=== PATIENT | female | born 1965 | race Two or more races ===

== ENCOUNTER 2019-04-14 10:30 | Emergency (ER) | payer OTHER ==
[~2019-04-14] VITALS: Ht 175.3 cm; Wt 99.8 kg
[~2019-04-14 10:30] MED LIST: ATORVASTATIN CA10 MG; SYNTHROID175 MCG PO
== END 2019-04-14 14:24 | disposition home or self-care (01) ==
LOC: ER 10:30
DX: R42 Dizziness and giddiness (principal)

== ENCOUNTER 2021-02-13 19:38 | Inpatient (IN) | payer OTHER ==
[~2021-02-13] VITALS: Ht 177.8 cm; Wt 95.3 kg
[2021-02-13] MEDS ORDERED: ATORVASTATIN CA40 MG (20:15)
[2021-02-16] MEDS ORDERED: XARELTO10 MG PO (12:24)
[2021-02-16] MEDS ORDERED: ULTRAM50 MG PO (12:28)
[2021-02-16] MEDS ORDERED: HIBICLENS118 ML TOP (12:31)
== END 2021-02-16 13:32 | disposition home or self-care (01) | DRG 482 ==
LOC: ER 19:38 → CIR.AMB 02-14 11:21 → SURH 02-14 19:59
PROVIDERS: ADMIT Orthopaedic Surgery; ATTEND Orthopaedic Surgery
PROC: 0QS704Z Reposition Left Upper Femur with Internal Fixation Device, Open Approach (ICD-10-PCS; principal; 2021-02-14 14:30)
DX: S72.092A Other fracture of head and neck of left femur, initial encounter for closed fracture (principal); Z20.822 Contact with and (suspected) exposure to COVID-19

== ENCOUNTER 2021-03-29 07:21 | Outpatient (CLI) | payer OTHER ==
[~2021-03-29 07:21] MED LIST changes: +ATORVASTATIN CA40 MG; +HIBICLENS118 ML TOP; +ULTRAM50 MG PO; +XARELTO10 MG PO
[2021-04-11] MEDS ORDERED: SYNTHROID150 MCG PO (14:03)
[2021-04-11] MEDS ORDERED: ZETIA10 MG PO (14:04)
== END 2021-03-29 07:27 | disposition home or self-care (01) ==
LOC: LAB 07:21
PROVIDERS: ATTEND Orthopaedic Surgery
DX: E83.42 Hypomagnesemia (principal); E56.1 Deficiency of vitamin K; M85.89 Other specified disorders of bone density and structure, multiple sites

== ENCOUNTER 2021-03-29 08:05 | Outpatient (CLI) | payer OTHER ==
[2021-04-11] MEDS ORDERED: SYNTHROID150 MCG PO (14:03)
[2021-04-11] MEDS ORDERED: ZETIA10 MG PO (14:04)
== END 2021-03-29 08:20 | disposition home or self-care (01) ==
LOC: RAD 08:05
PROVIDERS: ATTEND Orthopaedic Surgery
DX: S72.032D Displaced midcervical fracture of left femur, subsequent encounter for closed fracture with routine healing (principal)

== ENCOUNTER → 2021-04-11 | Outpatient (CLI) | payer OTHER ==
[~2021-04-11] MED LIST changes: +SYNTHROID150 MCG PO; +ZETIA10 MG PO
== END | disposition home or self-care (01) ==
LOC: NUCLEAR 10:00
PROVIDERS: ATTEND Orthopaedic Surgery
DX: I87.2 Venous insufficiency (chronic) (peripheral) (principal)

== ENCOUNTER → 2021-04-11 | Emergency (ER) | payer OTHER ==
[~2021-04-11] VITALS: Ht 177.8 cm; Wt 99.8 kg
== END | disposition home or self-care (01) ==
LOC: ER 13:50
DX: I82.4Z2 Acute embolism and thrombosis of unspecified deep veins of left distal lower extremity (principal)

== ENCOUNTER 2021-08-03 08:47 | Outpatient (CLI) | payer OTHER | END 2021-08-03 08:58 | disposition home or self-care (01) | LOC: NUCLEAR 08:47 | PROVIDERS: ATTEND Family Medicine | DX: I87.2 Venous insufficiency (chronic) (peripheral) (principal) ==

== ENCOUNTER → 2021-08-13 12:35 | Outpatient (CLI) | payer OTHER | END | disposition home or self-care (01) | LOC: RAD 12:35 | PROVIDERS: ATTEND Family Medicine | DX: M25.552 Pain in left hip (principal) ==

== ENCOUNTER 2021-11-13 08:05 | Outpatient (CLI) | payer OTHER | END 2021-11-13 08:06 | disposition home or self-care (01) | LOC: NUCLEAR 08:05 | PROVIDERS: ATTEND Family Medicine | DX: I82.523 Chronic embolism and thrombosis of iliac vein, bilateral (principal) ==

== ENCOUNTER 2025-01-14 10:34 | Outpatient (CLI) | payer OTHER | END 2025-01-14 10:35 | disposition home or self-care (01) | LOC: NUCLEAR 10:34 | PROVIDERS: ATTEND Family Medicine | DX: I87.2 Venous insufficiency (chronic) (peripheral) (principal) ==